=== PATIENT | female | born 1950 | race Caucasian/White ===

== ENCOUNTER 2021-05-03 09:24 | Emergency (ER) | payer OTHER, SELFPAY ==
--- NOTE | ~2021-05-03 | XR_ITS ---
EXAMINATION: XR chest 2V DATE: 05/03/2021 10:23 INDICATION: Dry cough TECHNIQUE: PA and lateral views of the chest are obtained. COMPARISON: None available FINDINGS: The lungs are free of acute opacities. There is no pleural effusion or pneumothorax. The ca rdiomediastinal silhouette is normal. There is an age-indeterminate compression fracture of the lower thoracic spine with 50% vertebral body height loss. IMPRESSION: 1. No acute cardiopulmonary abnormality. Reviewed, dictated and finalized at location A.
[2021-05-03 09:34] VITALS: BP 99/55; PULSE 110; RESP 20; TEMP 36.3; O2SAT 98
--- NOTE | 2021-05-03 09:59 | ED.GENADULT ---
HPI - General Adult General Chief complaint: Upper Respiratory Infection Stated complaint: Weakness, Coughing and excessive sweating Source: patient and family Mode of arrival: wheelchair Limitations: no limitations History of Present Illness HPI narrative: Patient presents for evaluation of multiple complaints. She is here in the company of her daughter who serves as primary historian. Unfortunately neither patient nor her daughter provide me with a very thorough history. Pt lives with her son and states that she has experienced generalized weakness, fatigue, decreased appetite, and subjective fever for the last several days. She cannot tell me the exact date for onset of symptoms. She states she was seen in the ER at [facility] in [place] a few days ago. Her BS was 400 per her reports. She states that she was told she had a UTI and she hands me paperwork that states she is currently taking macrobid. She states she is not sure whether she is still taking that medication. She states when she was seen at [facility] she was not experiencing any urinary symptoms. She denies urinary symptoms at present time. No nausea, vomiting, diarrhea, abdominal pain or chest pain. She believes she has experienced a dry cough and has experienced SOB. She has experienced visual hallucinations. She states she checked her BS this morning with a reading of 99. She is not sure what type or how much insulin she is injecting. Related Data Home Medications Medication Instructions Recorded Confirmed Fiasp U-100 Insulin 05/03/21 atorvastatin 20 mg PO DAILY 05/03/21 05/03/21 insulin glargine [Lantus Solostar 15 unit SUBCUT QAM 05/03/21 05/03/21 U-100 Insulin] lisinopril-hydrochlorothiazide 1 tablet PO DAILY 05/03/21 05/03/21 methimazole 10 mg PO DAILY 05/03/21 05/03/21 nitrofurantoin 100 mg PO Q12H 05/03/21 05/03/21 potassium chloride 10 meq PO DAILY 05/03/21 05/03/21 Allergies Allergy/AdvReac Type Severity Reaction Status Date / Time No Known Allergies Allergy Verified 05/03/21 10:10 Review of Systems Review of Systems: Narrative: CONSTITUTIONAL: Reports subjective fever, decreased appetite and fatigue EYES: Denies visual changes, redness, or discharge. ENT: Denies rhinorrhea, congestion, sore throat, or otalgia. CARDIOVASCULAR: Denies chest pain, palpitations, or edema. RESPIRATORY: Reports cough and shortness of breath GASTROINTESTINAL: Denies abdominal pain, nausea, vomiting, or diarrhea. GENITOURINARY: Denies dysuria or hematuria. SKIN: Denies rash or itching. MUSCULOSKELETAL: Denies back pain, joint pain, or myalgia. NEUROLOGIC: Reports generalized generalized weakness. Denies. PSYCHIATRIC: Reports visual hallucinations. Denies anxiety or depression. [facility] Past Medical History Medical History (Updated 05/03/21 @ 12:33 by MAITE Silvestre, ) Diabetes Fracture of left hip requiring operative repair Hyperlipidemia Hypertension Surgical History Surgical History History of repair of left hip joint Family History Family History Mother Alcoholism Father Alcoholism Social History Social History Smoking status: Never smoker Substance use: never Living arrangements: with family Gender identity (if verbalized by the patient): Female Spiritual care concerns: No Exam Narrative: Exam Narrative: GENERAL: Well-appearing, well-nourished, and in no acute distress. HEAD: Normocephalic, atraumatic. EYES: PERRLA and EOMI. ENT: Nares clear, no rhinorrhea or epistaxis. Mucous membranes moist. Oropharynx without tonsillar hypertrophy exudate or other lesions. Bilateral TMs pearly fraser nonbulging NECK: Supple. No adenopathy or masses. No carotid bruits or JVD CHEST: Clear to auscultation. Cough noted on exam. No respiratory distress.
[2021-05-03 10:09] LABS: Glucose Point of Care 230 mg/dl (65-105)
[2021-05-03 11:10] VITALS: BP 147/66; PULSE 100; RESP 20; TEMP 36.5; O2SAT 98
[2021-05-03] MEDS: ALBUTEROL SULFATE NEB 2.5 MG/3 ML INH INHALATION (11:22)
[2021-05-03] MEDS: IPRATROPIUM BR 0.02% INH SOLN 0.5 MG/2.5 ML VIAL INHALATION (11:22)
--- NOTE | 2021-05-03 11:45 | PC.NURSE ---
PT HAS BEEN UNABLE TO PROVIDE A URINE SPECIMEN. DAUGHTER HAS ASSISTED PT IN THE BATHROOM X 2 WITHOUT ANY RESULTS. PT HAS DRANK A FULL BOTTLE OF WATER. DANIEL BERRY PRODUCT MANAGEMENT CONSULTANT ADVISED.
--- NOTE | 2021-05-03 12:25 | PC.NURSE ---
PT AND DAUGHTER IN BATHROOM AGAIN AND UNABLE TO PROVIDE A URINE SPECIMEN. PT AND DAUGHTER REFUSING ANY OTHER ATTEMPTS TO COLLECT URINE AND REFUSING A STRAIGHT CATHETER TO COLLECT URINE. DANIEL BERRY CEMENTING BULK MATERIAL OPERATOR ADVISED.
--- NOTE | 2021-05-03 14:00 | PC.NURSE ---
05/03/21 1020 PT TO X RAY. ROLAND PETERSEN
[2021-05-04 20:22] LABS: SARS-CoV-2 RNA PCR Negative
== END 2021-05-03 12:26 | disposition short-term general hospital (02) ==
PROVIDERS: Emergency Provider Nurse Practitioner; PCP Family Medicine
DX: G93.40 Encephalopathy, unspecified (principal); N39.0 Urinary tract infection, site not specified; R10.84 Generalized abdominal pain; R11.2 Nausea with vomiting, unspecified; Z20.822 Contact with and (suspected) exposure to COVID-19; E11.9 Type 2 diabetes mellitus without complications; E78.5 Hyperlipidemia, unspecified; I10 Essential (primary) hypertension
CPT/HCPCS: 71046; 82948; 87426; 94640; 99213; C9803; G0463; U0003; U0005